=== PATIENT | female | born 1990 | race Caucasian/White ===

== ENCOUNTER 2024-12-23 10:11 | Observation (INO) | payer SELFPAY ==
[2024-12-23 10:11] VITALS: BP 154/66; PULSE 85; RESP 18; TEMP 35.8; O2SAT 99
--- NOTE | 2024-12-23 10:29 | ED.RN ---
PT IS IN A NONWEIGHT BED
[2024-12-23] MEDS: 0.9% Normal Saline (1000mL) 1,000 ML 999 ML IV ×2 (10:42→11:49)
--- NOTE | 2024-12-23 10:49 | EX.ED.DYSGE1 ---
HPI History of Present Illness Chief Complaint: Nausea/Vomiting Narrative Narrative: Patient is a 34-year-old female with past medical history of type 1 diabetes, gastroparesis who presents to the emergency department the chief complaint of nausea and vomiting. Patient states that she woke up this morning and has been persistently vomiting not able to keep anything down. States that she has gone into DKA in the past and she states that this does not feel like she is not in DKA. When asked if she has any abdominal pain associated with this nausea and vomiting she states that she has diffuse abdominal pain. Patient denies any previous abdominal surgeries. Patient states that she is currently on her menstrual cycle. States that she has been twice in the past with [address] [facility] Medical History Gastroparesis Diabetic acetonemia Allergy/AdvReac Type Severity Reaction Status Date / Time No Known Allergies Allergy Verified 12/23/24 10:14 Social History Smoking Status: Never smoker ROS ROS ED ROS Narrative Constitutional: Denies any fevers, chills, headaches Eyes: Denies double vision Cardiovascular: Denies chest pain Respiratory: Denies shortness of breath Abdomen: Complains of abdominal pain nausea and vomiting as noted above : Denies any painful urination, polyuria Neurological: Denies any numbness, weakness, tingling Musculoskeletal: Denies back pain Skin: Denies any rashes or lesions EXAM Physical Exam Narrative Exam Narrative: General: Patient was lying in the bed did appear to be uncomfortable secondary to her abdominal pain with emesis bag in hand actively vomiting Head: Atraumatic, normocephalic Eyes: PERRL bilaterally, EOMI bilateral, no conjunctival injection noted Neck: Soft, supple, trachea midline Cardiovascular: Regular rate and rhythm no murmurs gallops rubs noted Respiratory: Clear to auscultation bilaterally Abdomen: Soft, nondistended, nontender to palpation no rebound or guarding on exam Extremities: +5/5 strength noted in the bilateral upper and lower extremities Neurological: Patient following commands knew that she was at [facility] the year is 2024 Skin: Warm, dry, intact no rashes or lesions noted Const Vital Signs: 12/23/24 10:11 Temperature 96.4 F L Temperature Source Oral Pulse Rate 85 Respiratory Rate 18 Blood Pressure 154/66 H Blood Pressure Mean 95 Pulse Ox 99 Oxygen Delivery Method Room Air MDM MDM MDM Narrative Medical decision making narrative: Patient is a 34-year-old female who presents to the emergency department chief complaint of nausea and vomiting not keeping anything down. On the differential diagnosis includes but not limited to DKA, viral gastroenteritis, appendicitis, pancreatitis, , UTI. Once the workup is obtained and reviewed she will be reevaluated. Patient be given IV fluids, Zofran and morphine. Patient's VBG reviewed which showed a pH 7.56 with a bicarb of 25.2. Patient's CBC reviewed showed no evidence leukocytosis white blood count normal at 9.9, hemoglobin 12.2, platelet count of 300. Patient's sodium normal 130, calcium normal at 3.6,, dioxide low at 19.7, anion gap of 16. Patient glucose was 442 she was given 10 units subcutaneous insulin, lipase normal at 18, beta-hydroxybutyrate was 0.4 test negative. Patient had 5 ketones noted in her urine to 50 blood no evidence of infection. Patient's talk screen was presumptive positive for cannabis and opiates she was given narcotics here in the emergency department. Patient on reevaluation is still very nauseous and vomiting she will be given Reglan. On reevaluation the patient again she is still vomiting. At this point time will discuss the case with hospitalist for admission for intractable nausea and vomiting with likely early DKA. Did discuss case with hospitalist Dr. Hoyos who accept the patient for admission. Patient notified is agreeable to plan all question concerns answered at bedside. Lab Data Labs: Laboratory Results - last 24 hr 12/23/24 12/23/24 12/23/24 10:22 10:26 12:51 WBC 9.9 RBC 4.16 L Hgb 12.2 Hct 35.1 L MCV 84.4 MCH 29.3 MCHC 34.8 RDW Std Deviation 37.6 RDW Coeff of Aura 12.4 Plt Count 300 MPV 10.2 Immature Gran % (Auto) 0.400 Neut % (Auto) 81.7 H Lymph % (Auto) 13.4 L [place] % (Auto) 3.1 Eos % (Auto) 0.6 Baso % (Auto) 0.8 Absolute Neuts (auto) 8.1 H Absolute Lymphs (auto) 1.32 Nucleated RBC % 0 Sodium 138 Potassium 3.6 Chloride 102 Carbon Dioxide 19.7 L Anion Gap 16 H BUN 18 Creatinine 0.82 Est GFR (MDRD) Non-Af 97 BUN/Creatinine Ratio 21.4 H Glucose 442 H Calcium 9.7 Total Bilirubin 0.36 AST 24 ALT 17 Alkaline Phosphatase 103 Total Protein 7.8 Albumin 4.4 Globulin 3.4 Albumin/Globulin Ratio 1.3 Lipase 18 b-Hydroxybutyric mmol/L 0.4 H Serum , Qual NEGATIVE Urine Color Yellow Urine Clarity Clear Urine pH 7.0 Ur Specific [place] 1.010 Urine Protein Negative Urine Glucose (UA) 1000 H Urine Ketones 5 H Urine Occult Blood 250 H Urine Nitrite Negative Urine Bilirubin Negative Urine Urobilinogen Normal Ur Leukocyte Esterase Negative Urine RBC 5-10 SEEN Urine WBC 0 SEEN Ur Squamous Epith Cells 0-5 SEEN Urine Bacteria 0 SEEN Urine Mucus 0 SEEN Urine Opiates Screen PRESUMPTIVE POSITIVE U Buprenorphine Qual NEGATIVE Ur Oxycodone Screen NEGATIVE Urine Methadone Screen NEGATIVE Urine Fentanyl Screen NEGATIVE Ur Barbiturates Screen NEGATIVE Ur Phencyclidine Scrn NEGATIVE Ur Amphetamines Screen NEGATIVE U Benzodiazepines Scrn NEGATIVE Urine Cocaine Screen NEGATIVE U Cannabinoids Screen PRESUMPTIVE POSITIVE POC Glucose 378 H ABG Data ABG results: ABG 12/23/24 10:46 Specimen Type LEONARDO Sample Site Not entered VBG pH 7.56 H VBG pO2 66 H VBG HCO3 24 VBG Total CO2 25 VBG O2 Sat (Calc) 96 H VBG Base Excess 2 POC Mix VBG pCO2 Pt Tmp 27.2 L O2 Delivery Device Not entered Discharge Plan Triage Chief Complaint: Nausea/Vomiting ED Provider: Erwin Stanley Dx/Rx/DC Orders Clinical Impression: Type 1 diabetes, Hyperglycemia, Intractable vomiting with nausea Primary Care Provider: Care Physician,No Primary Referrals: Care Physician,No Primary [Primary Care Provider] - Print Language: Nigerian Disposition Disposition: [facility] Care [facility]
[2024-12-23 10:50] LABS: SITE Not entered; VBG BASE EXCESS 2 mmol/L (-1.0-3.5); VBG PO2 66 mmHg (25-40); VBG SO2 96 % (50-70); VBG TCO2 25 mmol/L (23-33)
[2024-12-23 10:54] LABS: Hematocrit 35.1 % (37-47); Hemoglobin 12.2 g/dL (12.0-15.0); Immature Granulocytes Count 0.040 X10^3/uL (0.0-0.0); Mean Corp Hgb Conc 34.8 g/dL (32-36); Mean Corpuscular Volume 84.4 fL (81-99); Mean Platelet Vol. 10.2 fl (6.2-12.0); NRBC Flagged by Analyzer 0 % (0-5); Platelet Count 300 K/mm3 (150-450); RBC Distribution Width CV 12.4 % (11.6-14.6); RBC Distribution Width SD 37.6 fl (35.1-43.9); Red Blood Count 4.16 M/mm3 (4.2-5.4); White Blood Count 9.9 K/mm3 (4.4-11.0)
[2024-12-23 11:00] LABS: Internal QC Validated? YES +Cl - CLEAR BKGD; Pregnancy, Serum, hCG Quali. NEGATIVE Negative
[2024-12-23 11:01] LABS: Record Kit Lot#, Serum Preg. 962302
[2024-12-23 11:14] LABS: AST(SGOT) 24 U/L (<=31); Alanine Aminotransfer ALT/SGPT 17 U/L (<=34); Albumin, Serum 4.4 g/dL (3.5-5.0); Alkaline Phosphatase 103 U/L (35-104); Anion Gap 16 (5-15); BETA-HYDROXYBUTYRATE 0.4 mmol/L (0.0-0.3); BUN 18 mg/dL (4-19); BUN/Creat Ratio 21.4 RATIO (10-20); Calcium,Total 9.7 mg/dL (7.6-11.0); Carbon Dioxide 19.7 mmol/L (21.0-32.0); Chloride 102 mmol/L (98-108); Globulin 3.4 g/dL (2.2-4.2); Glucose 442 mg/dL (70-99); Lipase 18 U/L (13-75); Potassium 3.6 mmol/L (3.3-5.1)
[2024-12-23 12:55] LABS: Mucous, Urine 0 SEEN /hpf (<or=2+)
[2024-12-23 12:57] LABS: Color, Urine Yellow (Yellow); Glucose, Dipstick 1000 mg/dl (Normal); Ketone-Dipstick 5 mg/dl (Negative); Leukocyte Esterase-Dipstick Negative /ul (Negative); Nitrite-Dipstick Negative (Negative); Occult Blood-Urine 250 /ul (Negative); Protein-Dipstick Negative (Negative); Specific Gravity, Urine 1.010 (1.002-1.030); Urine Bilirubin Dipstick Negative (Negative)
[2024-12-23 13:05] LABS: Red Blood Cells-Urine 5-10 SEEN /hpf (0-5); Squamous Epithelial Cells - UA 0-5 SEEN /hpf (5-10)
[2024-12-23 13:28] LABS: Barbiturate Urine NEGATIVE (< 200 ng/mL); Benzodiazepine Urine NEGATIVE (< 200 ng/mL); PCP Urine NEGATIVE (< 25 ng/mL); THC Urine PRESUMPTIVE POSITIVE (< 50 ng/mL)
--- NOTE | 2024-12-23 14:06 | PCM.HP.STD ---
HPI - General General Date of Admission: 12/23/24 Date of Service: 12/23/24 Chief Complaint: Intractable nausea and vomiting HPI Narrative COOPER MARTIN, is a 34 F who presented to [facility] ED on 12/23/2024 with intractable nausea and vomiting. Medical history significant for type 1 diabetes mellitus on insulin pump, diabetic gastroparesis and marijuana use. Patient was feeling fine last night, but she woke up this morning with nausea and vomiting and has been unable to keep anything down all day. She last used marijuana 2 days ago and typically smokes marijuana a few times a week. Does note that she has had nausea and vomiting like this after smoking marijuana in the past. She uses an insulin pump for her diabetes and notes no issues with this recently. She does not have her insulin pump on her currently and states that prior to the insulin pump she was on Lantus 23 units at night and Humalog 1 to 10 units sliding scale with meals. In the ED she was borderline tachycardic with heart rate in the 90s but otherwise normotensive and stable on room air at rest. Blood glucose 442 but beta-hydroxybutyrate only 0.4 and pH 7.56 on VBG, not consistent with DKA. CBC and BMP were otherwise benign. She was given a dose of IV Humalog 10 units as well as doses of IV Zofran and Reglan. Blood glucose slightly improved to the 300s, but patient had continued nausea with vomiting, so hospitalist was contacted for admission. I saw the patient at bedside in the ED. Patient was actively vomiting when I saw her. Noted that the Reglan and Zofran did not seem to help much. She denies any abdominal pain currently. No other acute concerns at this time. Will be admitted for further management. [facility] Medical History Gastroparesis Diabetic acetonemia Allergy/AdvReac Type Severity Reaction Status Date / Time No Known Allergies Allergy Verified 12/23/24 10:14 Social History Smoking Status: Never smoker ROS Constitutional Constitutional: Reports fatigue; Denies chills, fever(s) or weakness Cardiovascular Cardiovascular: Denies chest pain Respiratory/Chest Respiratory/Chest: Denies shortness of breath at rest Gastrointestinal Gastrointestinal: Reports nausea and vomiting; Denies abdominal pain, constipation or diarrhea Musculoskeletal Musculoskeletal: Denies arthralgias or myalgias Vital Signs Vital Signs Vital Signs: 12/23/24 10:11 Temperature 96.4 F L Temperature Source Oral Pulse Rate 85 Respiratory Rate 18 Blood Pressure 154/66 H Blood Pressure Mean 95 Pulse Ox 99 Oxygen Delivery Method Room Air Physical Exam Const alert and oriented x3 Constitutional Narrative: Younger female, class I obesity, uncomfortable appearing and actively vomiting when I saw her, otherwise answering questions with short appropriate responses. General Appearance: cooperative HEENT normocephalic, head/scalp atraumatic, hearing grossly normal bilaterally and nasal mucous membranes and turbinates normal Eyes PERRL, EOMs intact bilaterally and conjunctivae normal Neck full ROM Chest inspection of chest normal Resp normal respiratory effort, normal air movement, no use of accessory muscles and clear to auscultation bilaterally Cardio regular rate, regular rhythm, no murmurs and peripheral pulses 2+ throughout GI normal to inspection, nondistended, normoactive bowel sounds, soft to palpation, non-tender and non-distended Back/Spine normal ROM Extremity normal to inspection, full ROM and no pedal edema Skin no rashes or lesions noted Psych mental status grossly normal Results Lab / Micro Data 12/23/24 10:26 12/23/24 10:26 Labs: Laboratory Results - last 24 hr 12/23/24 10:22: POC Glucose 378 H 12/23/24 10:26: WBC 9.9, RBC 4.16 L, Hgb 12.2, Hct 35.1 L, MCV 84.4, MCH 29.3, MCHC 34.8, RDW Std Deviation 37.6, RDW Coeff of Aura 12.4, Plt Count 300, MPV 10.2, Immature Gran % (Auto) 0.400, Neut % (Auto) 81.7 H, Lymph % (Auto) 13.4 L, [place] % (Auto) 3.1, Eos % (Auto) 0.6, Baso % (Auto) 0.8, Absolute Neuts (auto) 8.1 H, Absolute Lymphs (auto) 1.32, Nucleated RBC % 0, Sodium 138, Potassium 3.6, Chloride 102, Carbon Dioxide 19.7 L, Anion Gap 16 H, BUN 18, Creatinine 0.82, Est GFR (MDRD) Non-Af 97, BUN/Creatinine Ratio 21.4 H, Glucose 442 H, Calcium 9.7, Total Bilirubin 0.36, AST 24, ALT 17, Alkaline Phosphatase 103, Total Protein 7.8, Albumin 4.4, Globulin 3.4, Albumin/Globulin Ratio 1.3, Lipase 18, b-Hydroxybutyric mmol/L 0.4 H, Serum , Qual NEGATIVE 12/23/24 12:51: Urine Color Yellow, Urine Clarity Clear, Urine pH 7.0, Ur Specific [place] 1.010, Urine Protein Negative, Urine Glucose (UA) 1000 H, Urine Ketones 5 H, Urine Occult Blood 250 H, Urine Nitrite Negative, Urine Bilirubin Negative, Urine Urobilinogen Normal, Ur Leukocyte Esterase Negative, Urine RBC 5-10 SEEN, Urine WBC 0 SEEN, Ur Squamous Epith Cells 0-5 SEEN, Urine Bacteria 0 SEEN, Urine Mucus 0 SEEN, Urine Opiates Screen PRESUMPTIVE POSITIVE, U Buprenorphine Qual NEGATIVE, Ur Oxycodone Screen NEGATIVE, Urine Methadone Screen NEGATIVE, Urine Fentanyl Screen NEGATIVE, Ur Barbiturates Screen NEGATIVE, Ur Phencyclidine Scrn NEGATIVE, Ur Amphetamines Screen NEGATIVE, U Benzodiazepines Scrn NEGATIVE, Urine Cocaine Screen NEGATIVE, U Cannabinoids Screen PRESUMPTIVE POSITIVE ABG Data ABG results: ABG 12/23/24 10:46 Specimen Type LEONARDO Sample Site Not entered VBG pH 7.56 H VBG pO2 66 H VBG HCO3 24 VBG Total CO2 25 VBG O2 Sat (Calc) 96 H VBG Base Excess 2 POC Mix VBG pCO2 Pt Tmp 27.2 L O2 Delivery Device Not entered Assessment & Plan Assessment/Plan (1) Intractable vomiting with nausea: PLAN: Plan Patient is a 34-year-old female who presented [facility] ED on 12/23/2024 with intractable nausea and vomiting. 1. Intractable nausea and vomiting ? Admit under observation status to [facility]. Seems most likely due to cannabis hyperemesis syndrome with diabetic gastroparesis possibly contributing. Given 2 L of IV fluids in the ED. Given doses of IV Reglan and IV Zofran without much improvement. Will treat with IV Haldol and IV Reglan as needed for now. Unfortunately capsaicin cream is out of stock. Will order clear liquid diet for now but if patient not tolerating diet by this evening, we will plan to run maintenance IV fluids. 2. Type 1 diabetes mellitus with hyperglycemia, diabetic gastroparesis ? Per history. On insulin pump at home but did not bring insulin pump in with her. Notes that prior to being started on insulin pump, she was on Lantus 23 units at night and Humalog 1 to 10 units sliding scale with meals. Blood glucose 442 on admit. Given 10 units of Humalog with improvement in blood sugar to the 300s. A1c ordered. Will start Lantus 20 units at night and Humalog sliding scale for now, adjust as needed. 3. Marijuana abuse ? Reports smoking marijuana typically a few times per week. Last use was 2 days prior to this admission. Does report symptoms of hyperemesis syndrome in the past. UDS positive for marijuana. Strongly recommended cessation on discharge. DVT prophylaxis: Lovenox CODE STATUS: Full code, verified Expected disposition: Home, 1 to 2 days Total clinical time spent by myself addressing the patient's medical issues, reviewing all the data, and collaborating with patient's care team: 55 minutes. Charges/Coding Visit Charges Inpatient E&M: 87296 Init Hosp L2
[2024-12-23 14:11] VITALS: BP 128/55; PULSE 91; RESP 16; TEMP 37.3; O2SAT 91
[2024-12-23 14:25] VITALS: BP 128/55; PULSE 91; RESP 16; TEMP 37.3; O2SAT 91
[2024-12-23 14:51] VITALS: BP 127/59; PULSE 70; RESP 18; TEMP 36.6; O2SAT 93
[2024-12-23 14:52] VITALS: BMI 33.7
[2024-12-23] MEDS: 0.9% Saline Lock 10 ML Syringe IV ×3 (15:40→22:43)
[2024-12-23 16:41] LABS: Alcohol, Blood (Medical)-Serum < 10.1 mg/dL (<=10.0)
[2024-12-23 22:30] VITALS: BP 129/72; PULSE 90; RESP 18; TEMP 37.2; O2SAT 99
[2024-12-23] MEDS: Insulin Glargine-YFGN 100 UNIT/ML Pen 20 UNIT SC (22:46)
[2024-12-24] VITALS (7 sets, daily range): BP systolic 120–150; BP diastolic 64–77; PULSE 73–86; RESP 16–18; TEMP 37.1–37.3; O2SAT 96–99
[2024-12-24] MEDS: 0.9% Saline Lock 10 ML Syringe IV ×2 (04:44→11:51)
[2024-12-24 05:22] LABS: Hematocrit 34.8 % (37-47); Hemoglobin 11.6 g/dL (12.0-15.0); Mean Corp Hgb Conc 33.3 g/dL (32-36); Mean Corpuscular Volume 88.3 fL (81-99); Mean Platelet Vol. 10.0 fl (6.2-12.0); Platelet Count 294 K/mm3 (150-450); RBC Distribution Width CV 12.7 % (11.6-14.6); RBC Distribution Width SD 41.2 fl (35.1-43.9); Red Blood Count 3.94 M/mm3 (4.2-5.4); White Blood Count 10.6 K/mm3 (4.4-11.0)
[2024-12-24 05:48] LABS: Anion Gap 16 (5-15); BUN 19 mg/dL (4-19); BUN/Creat Ratio 23.2 RATIO (10-20); Calcium,Total 8.7 mg/dL (7.6-11.0); Carbon Dioxide 21.0 mmol/L (21.0-32.0); Chloride 106 mmol/L (98-108); Estimated Creatinine Clearance 100.24 ml/min (50-250); Glucose 186 mg/dL (70-99); Potassium 3.1 mmol/L (3.3-5.1)
--- NOTE | 2024-12-24 13:26 | PCM.PN.HOSP ---
Reason for Visit Chief Complaint: Intractable nausea and vomiting Subjective Subjective Still nauseated. Objective Data Objective Data Vital Signs: Vital Signs Temp Pulse Resp BP Pulse Ox O2 Del Method 37.2 C 81 18 120/68 96 Room Air 12/24/24 08:16 12/24/24 08:16 12/24/24 08:16 12/24/24 08:16 12/24/24 11:03 12/24/24 11:03 Oxygen Delivery Method Room Air Weight: 83.552 kg Body Mass Index (BMI) 33.7 Intake & Output: Intake and Output for Last 24 Hours 12/22/24 12/23/24 12/24/24 23:59 23:59 23:59 Intake Total 3000 / 3000 400 / 400 Output Total 400 / 400 200 / 200 Balance 2600 / 2600 200 / 200 Lab / Micro Data 12/24/24 05:09 12/24/24 05:09 Labs: Laboratory Results - last 24 hr 12/23/24 10:26: Hemoglobin A1c 6.6 H, Ethyl Alcohol < 10.1 12/23/24 12:51: Urine Opiates Screen PRESUMPTIVE POSITIVE, U Buprenorphine Qual NEGATIVE, Ur Oxycodone Screen NEGATIVE, Urine Methadone Screen NEGATIVE, Urine Fentanyl Screen NEGATIVE, Ur Barbiturates Screen NEGATIVE, Ur Phencyclidine Scrn NEGATIVE, Ur Amphetamines Screen NEGATIVE, U Benzodiazepines Scrn NEGATIVE, Urine Cocaine Screen NEGATIVE, U Cannabinoids Screen PRESUMPTIVE POSITIVE 12/23/24 14:19: POC Glucose 221 H 12/23/24 15:44: POC Glucose 197 H 12/23/24 22:36: POC Glucose 242 H 12/24/24 05:09: WBC 10.6, RBC 3.94 L, Hgb 11.6 L, Hct 34.8 L, MCV 88.3, MCH 29.4, MCHC 33.3, RDW Std Deviation 41.2, RDW Coeff of Aura 12.7, Plt Count 294, MPV 10.0, Sodium 142, Potassium 3.1 L, Chloride 106, Carbon Dioxide 21.0, Anion Gap 16 H, BUN 19, Creatinine 0.80, Estim Creat Clear Calc 100.24, Est GFR (MDRD) Non-Af 99, BUN/Creatinine Ratio 23.2 H, Glucose 186 H, Calcium 8.7 12/24/24 06:07: POC Glucose 183 H 12/24/24 11:46: POC Glucose 217 H Physical Exam Const alert Constitutional Narrative: briefly opens eye. flat affect HEENT head/scalp atraumatic and moist oral mucous membranes Resp normal respiratory effort, no retractions and no use of accessory muscles Cardio regular rate, regular rhythm, S1 normal heart sound and S2 normal heart sound GI normal to inspection, nondistended, normoactive bowel sounds, soft to palpation, non-tender and non-distended Neuro Sensorium / Orientation: awake and alert Assessment & Plan Assessment/Plan (1) Intractable vomiting with nausea: PLAN: Ongoing. Diabetic gastroparesis versus cannabinoid hyperemesis syndrome. Supportive management. Avoid narcotics. Advance diet PLAN: Plan DM1: on glargine and SSI. Charges/Coding Visit Charges Inpatient E&M: 60000 Subs Hosp L2
--- NOTE | 2024-12-24 13:49 | CASEMGMT ---
Social Work SW met w/pt briefly, provided resources as pt is self pay. Pt lives in [place] which is in [facility], was up here visiting her boyfriend's family. SW gave pt resources for [place] and [facility], also provided a list of prescription resources and [facility] financial assistance. Pt states started a Medicaid application online, she would like to speak w/Agustina from [employer] as well. SW sent Agustina an email asking her to see pt, she did try earlier but pt was not feeling well. SW also asked pt about her alcohol use, as SW documented that pt will drink eight tequila shots. Pt states that is over a week, and not in one day. SW offered resource regarding her alcohol use, pt declined. No further social service needs, TAWANNA remains available should any additional resources be needed. KILO Gaspar
[2024-12-24] MEDS: Insulin Glargine-YFGN 100 UNIT/ML Pen 20 UNIT SC (22:17)
[2024-12-25 02:02] VITALS: BP 123/64; PULSE 68; RESP 16; TEMP 37.2; O2SAT 98
--- NOTE | 2024-12-25 08:04 | PCM.PN.HOSP ---
Reason for Visit Chief Complaint: Intractable nausea and vomiting Subjective Subjective Feels well. Objective Data Objective Data Vital Signs: Vital Signs Temp Pulse Resp BP Pulse Ox O2 Del Method 37.2 C 68 16 123/64 H 98 Room Air 12/25/24 02:02 12/25/24 02:02 12/25/24 02:02 12/25/24 02:02 12/25/24 02:02 12/25/24 02:02 Oxygen Delivery Method Room Air Weight: 83.552 kg Body Mass Index (BMI) 33.7 Intake & Output: Intake and Output for Last 24 Hours 12/23/24 12/24/24 12/25/24 23:59 23:59 23:59 Intake Total 3000 / 3000 1900 / 2080 580 / 580 Output Total 400 / 400 200 / 200 Balance 2600 / 2600 1700 / 1880 580 / 580 Lab / Micro Data 12/24/24 05:09 12/24/24 05:09 Labs: Laboratory Results - last 24 hr 12/24/24 11:46: POC Glucose 217 H 12/24/24 17:33: POC Glucose 250 H 12/24/24 22:16: POC Glucose 114 H 12/25/24 05:56: POC Glucose 136 H Physical Exam Const alert and no apparent distress Constitutional Narrative: Nontoxic. Afebrile. Assessment & Plan Assessment/Plan (1) Intractable vomiting with nausea: PLAN: Resolved Diabetic gastroparesis versus cannabinoid hyperemesis syndrome. Supportive management. Avoid narcotics. Advance diet Patient with known diabetic gastroparesis. Advised patient to avoid THC containing compounds in the future PLAN: Plan DM1: on glargine and SSI. Fair control. Patient to resume insulin pump upon discharge.
[2024-12-25 08:15] VITALS: O2SAT 95
[2024-12-25 09:21] VITALS: BP 141/62; PULSE 77; RESP 18; TEMP 36.6; O2SAT 99
[2024-12-25 09:23] VITALS: BP 141/62; PULSE 70; RESP 18; TEMP 36.6; O2SAT 99
--- NOTE | 2024-12-25 11:51 | PCM.DC.SUM ---
Providers Date of Admission: 12/23/24 Primary Care Physician: Neda Primary Care Phys Reason For Visit: INTRACTABLE NAUSEA/VOMITING Diagnosis Discharge Diagnosis (1) Intractable vomiting with nausea: Status: Acute Code(s): R11.2 - Nausea with vomiting, unspecified Plan: Resolved Diabetic gastroparesis versus cannabinoid hyperemesis syndrome. Supportive management. Avoid narcotics. Advance diet Patient with known diabetic gastroparesis. Advised patient to avoid THC containing compounds in the future Plan DM1: on glargine and SSI. Fair control. Patient to resume insulin pump upon discharge. Hospital Course Operations None Procedures None Summary of Care Provided Hospital Course: Patient presents for intractable nausea and vomiting. Overall improved. Patient with known diabetic gastroparesis. Did advise patient to avoid cannabinoid containing products as it may cause intractable nausea vomiting on its own. Patient normally uses an insulin pump but has ran out but has insulin at home that she can take. Says she does not need any refills nor any supplies Weight / BMI Weight Weight: 83.552 kg Body Mass Index (BMI) 33.7 ABG / Lab / Microbiology Data 12/24/24 05:09 12/24/24 05:09 Laboratory: Laboratory Results - last 24 hr 12/24/24 11:46: POC Glucose 217 H 12/24/24 17:33: POC Glucose 250 H 12/24/24 22:16: POC Glucose 114 H 12/25/24 05:56: POC Glucose 136 H D/C Instructions Discharge Activity: Return to Normal Activity DC O2, CPAP, BIPAP Needs Home O2 Discharge instructions: No Meaningful Use Info Meaningful Use Meaningful Use Diagnoses (Choose all that apply): None applicable Discharge Plan Admission Admit Date/Time: 12/23/24 14:09 Primary Reason for Your Visit: Nausea and vomiting Attending Provider: Arthur Germain Primary Care Provider: Care Physician,Neda Primary Consulting Providers: Samm Hoyos Instructions Additional Instructions / Restrictions: Avoid marijuana/THC containing products. Take your insulin as previously instructed. Discharge Orders/Prescriptions Referrals / Follow Up: Care Physician,No Primary [Primary Care Provider] - Disposition Disposition (needs filled in before D/C Order can be placed): Home, Self Care Charges/Coding Visit Charges Inpatient E&M: 46859 Disch Hosp
--- NOTE | 2024-12-25 12:03 | CASEMGMT ---
Pt has an order for DC placed. Noted that the pt does not have a PCP. OLGA CM to the pt room at this time. Pt declines PCP list and states that she is from [place] and that she is able to get established herself. Pt denies further questions or concerns.
== END 2024-12-25 12:50 | disposition home or self-care (01) ==
LOC: ED 14:13 → MS3 16:33
PROVIDERS: Admitting Provider Hospitalist; Emergency Provider Emergency Medicine
DX: E10.43 Type 1 diabetes mellitus with diabetic autonomic (poly)neuropathy (principal); Z79.4 Long term (current) use of insulin; E10.65 Type 1 diabetes mellitus with hyperglycemia; Z96.41 Presence of insulin pump (external) (internal); K31.84 Gastroparesis; E66.811 Obesity, class 1; Z68.33 Body mass index [BMI] 33.0-33.9, adult; F12.10 Cannabis abuse, uncomplicated
CPT/HCPCS: 36415; 80048; 80053; 80307; 81001; 82010; 82077; 82803; 82962; 83036; 83690; 84703; 85025; 85027; 94668; 96372; 96374; 96375; 96376; 99221; 99285; A4216; G0378; J2405